=== PATIENT | female | born 1960 | race Caucasian/White ===

== ENCOUNTER → 2017-03-30 | Outpatient (CLI) | payer OTHER ==
[~2017-03-30] MED LIST: CALC500T83 PO; FLAX10007 PO; MULT-513 PO; REDCAP2 PO; [UNRECOGNIZED DRUG - CODE] OPB
--- NOTE | 2017-03-30 12:41 | MAMMOGRAPHY REPORT ---
BILATERAL DIGITAL SCREENING MAMMOGRAM TOMOSYNTHESIS WITH CAD: 03/30/2017 CLINICAL HISTORY: Routine screening. Patient has no complaints. TECHNIQUE: Breast tomosynthesis in addition to standard 2D mammography was performed. Current study was also evaluated with a Computer Aided Detection (CAD) system. COMPARISON: Comparison is made to exams dated: 03/21/2016 mammogram, 03/18/2015 mammogram, 02/17/2014 m ammogram, 02/13/2013 mammogram, 02/10/2012 mammogram, and 10/20/2010 mammogram - [facility] enter. BREAST COMPOSITION: There are scattered areas of fibroglandular density in both breasts. FINDINGS: No suspicious masses, calcifications, or areas of architectural distortion are noted in ei ther breast. There has been no significant interval change compared to prior exams. IMPRESSION: ACR BI-RADS CATEGORY 1: NEGATIVE There is no mammographic evidence of malignancy. A 1 year screening mammogram is recommended. The pa tient will receive written notification of the results. Approximately 10% of breast cancers are not detected with mammography. A negative mammographic report should not delay biopsy if a clinically suggestive mass is present. Faviola Rollins M.D. ah/:03/30/2017 07:47:56 Html Web Developer: Selena LOPEZ(Jl)(M), [facility] letter sent: Normal 1/2 BI-RADS Code: ACR BI-RADS Category 1: Negative
== END | disposition home or self-care (01) ==
LOC: C.MAMM 07:22
PROVIDERS: ATTEND Obstetrics & Gynecology
DX: Z12.31 Encounter for screening mammogram for malignant neoplasm of breast (principal)

== ENCOUNTER → 2017-06-09 | Outpatient (CLI) | payer OTHER ==
[2017-06-09 09:07] LABS: ALT/SGPT 30 U/L (12-78); BLOOD UREA NITROGEN 14 mg/dl (7-18); BUN/CREATININE RATIO 13.5 (10-20); CALCIUM 9.1 mg/dl (8.5-10.1); CARBON DIOXIDE 27 mmol/L (21-32); CHLORIDE 110 mmol/L (98-107); CREATININE 1.02 mg/dl (0.60-1.20); GLUCOSE 90 mg/dl (70-99); POTASSIUM 4.5 mmol/L (3.5-5.1); SODIUM 143 mmol/L (136-145)
[2017-06-09 09:17] LABS: ALKALINE PHOSPHATASE 84 U/L (45-117); AST/SGOT 21 U/L (15-37)
[2017-06-09 09:31] LABS: BASO % 0.9 %; BASO ABS # 0.06 K/uL (0-0.2); COMPLETE YES; EOS % 12.3 %; HEMATOCRIT 42.9 % (37-47); IG% 0.3 %; LYMPH % 31.8 %; LYMPH ABS # 2.13 K/uL (1.2-3.4); MEAN CELL VOLUME 89.2 fL (80-100); MEAN CORPUSCULAR HEMOGLOBIN 29.1 pg (25-34); MEAN CORPUSCULAR HGB CONC 32.6 g/dl (32-36); MEAN PLATELET VOLUME 9.6 fL (7.4-10.4); MONO % 7.5 %; NEUT % 47.2 %; PLATELET COUNT 316 K/uL (130-400); RED BLOOD COUNT 4.81 M/uL (4.2-5.4); WHITE BLOOD COUNT 6.69 K/uL (4.8-10.8)
[2017-06-09 09:47] LABS: ESTIMATED AVERAGE GLUCOSE 114 mg/dl; HA1C FLAG Normal (Normal)
== END | disposition home or self-care (01) ==
LOC: C.LAB 07:55
PROVIDERS: ATTEND Internal Medicine
DX: Z00.00 Encounter for general adult medical examination without abnormal findings (principal); R73.03 Prediabetes; I49.9 Cardiac arrhythmia, unspecified

== ENCOUNTER → 2017-06-09 | Outpatient (CLI) | payer OTHER ==
[2017-06-09 09:09] LABS: CHOLESTEROL/HDL RATIO 2.8
== END | disposition home or self-care (01) ==
LOC: C.LAB 07:52
PROVIDERS: ATTEND Internal Medicine
DX: Z13.220 Encounter for screening for lipoid disorders (principal)

== ENCOUNTER → 2017-08-07 | Outpatient (CLI) | payer OTHER | END | disposition home or self-care (01) | LOC: C.MAMM 07:56 | PROVIDERS: ATTEND Obstetrics & Gynecology | DX: Z78.0 Asymptomatic menopausal state (principal) ==

== ENCOUNTER 2024-10-15 08:11 | Observation (INO) ==
--- NOTE | 2024-10-15 08:38 | Emergency Department Note ---
Impression & Plan Dizziness, Chest pain ED Provider Note HISTORY OF PRESENT ILLNESS: Patient is a 64-year-old female presenting with strokelike symptoms and chest pain. Patient reports that she woke up this morning at 6:45 and had rolled over to turn off her alarm when she suddenly felt very dizzy. Reports that feels like the room is spinning. She states that she tried to look at her phone but had blurry and double vision. Reports that symptoms lasted for about 5 minutes and then she felt like her dizziness stopped and she was able to get up out of bed. She states she was slowly making her way to the bathroom to go to the bathroom when she started having numbness and tingling in her bilateral arms and legs. She also states she started having some substernal chest pressure that radiated up into her jaw. Given her symptoms, she decided to come to the emergency department. She is not on any medications daily, including any anticoagulation or antiplatelet therapies. She denies any recent falls or head injuries. Denies any chiropractic manipulation of her neck. She describes a diffuse chest pressure that radiates into her bilateral jaws. Denies any radiation to the back or into the abdomen. Denies any nausea or vomiting. She has never had vertigo before. ROS: as above PHYSICAL EXAM: Constitutional: Patient appears in no acute distress. HENT: Head: Normocephalic and atraumatic. Eyes: EOMI, PERRL Mouth/Throat: Mucous membranes moist. Neck: Trachea midline. Neck supple. Cardiovascular: RRR, No murmurs, rubs or gallops. Intact distal pulses. Pulmonary/Chest: No respiratory distress. Breath sounds clear and equal bilaterally. No wheezes or rales. Abdominal: Abdomen soft, no tenderness, rebound or guarding. Musculoskeletal: No edema, tenderness or deformity noted. Skin: Warm and dry. No rash, erythema, pallor or cyanosis Psychiatric: Appropriate mood and affect for situation. Neurological: Alert and keenly responsive. Facies symmetric. Able to raise eyebrows, close eyes, smile, puff mouth, stick out tongue, move tongue left and right and raise palate symmetrically. Able to shrug shoulders. PERRLA. SILT to forehead below eye and at jawline. Can hear soft noise bilaterally. Good finger to nose. Strength 5/5 in bilateral upper and lower extremities. SILT throughout bilateral upper and lower extremities. MDM: - Vitals signs showed hypertension. Fingerstick glucose 84. - History obtained via patient. History as above. - Chronic conditions affecting care: None - Differential diagnoses include, but are not limited to: CVA; intracranial hemorrhage; peripheral vertigo; ACS; pneumonia; electrolyte abnormality; dysrhythmia - Order placed for continuous cardiac monitoring. At this time, monitor showed rate of 75 bpm with normal sinus rhythm, per my interpretation. - External medical records reviewed. Primary care visit note dated 07/15/2024 was reviewed. Patient was seen for an acute visit for right sided rib pain for 1.5 weeks. - EKG image interpreted by myself showed normal sinus rhythm. Rate 80 bpm. QT 390. No acute ischemic changes. - Laboratory workup interpreted by myself showed normal WBC; normal PT/INR; stable electrolytes; normal troponin - CXR image reviewed by myself negative for pneumonia, per my interpretation - CT head wo contrast negative for acute abnormality - CTA head/neck negative for acute pathology - UA negative for infection - Given 324 mg PO aspirin - Repeat troponin within normal limits. - Patient was assisted up to the bathroom and still felt slightly lightheaded and dizzy and woozy. Discussed results with patient. Will be admitted for further strokelike workup including MRI and echocardiogram. - Discussion was had with case supervisor about patient's case and need for admission - Hospitalist, Dr. Melendez, consulted for admission - Patient admitted to [facility] for further evaluation and management. ASSESSMENT AND PLAN: Diagnosis: Dizziness; chest pain Plan: Admit Past Med/Surg History Problem List (Updated 10/15/24 @ 14:10 by Marianna Hair MD) Chest pain (Acute) Dizziness (Acute) Bunion, right foot Quadriceps tendinitis Patellofemoral arthralgia of right knee Foot pain, right Hyperglycemia Change in hearing Bunion Knee pain Venous insufficiency Vitamin D deficiency Atypical chest pain Family history of colonic polyps Postmenopausal atrophic vaginitis Osteopenia Hyperlipidemia Medical History Encounter for pre-operative examination Irregular heart rhythm Surgical History History of colonoscopy History of wisdom tooth extraction Family History Mother Family hx colonic polyps Sister Family hx colonic polyps Grandmother (Paternal) Breast cancer Grandfather (Maternal) Myocardial infarction Brother Throat cancer Other No family history of adverse response to anesthesia Denies family history of Colon cancer Ovarian cancer Prostate cancer Social History Smoking Status: Never smoker Second Hand Exposure: No; Do You Dip or Chew Tobacco: No; Hx Alcohol Use: Yes Alcohol type: wine Hx Substance Use: No Preferred Language: Bengali Communication Ability: Effective Visual Impairment: No Limitations Hearing Ability: Normal Heel Seat Sander Required: No Beliefs That Will Affect Care: None marital status: Current Living Situation: Spouse Feels Safe at Home: Yes Childhood Exposure to Second-Hand Smoke: No Seatbelt Use: always Sunscreen Use: Yes Assistive Devices: Contacts and Glasses Allergies Allergies Allergy/AdvReac Type Severity Reaction Status Date / Time rofecoxib Allergy Severe SWELLING Verified 08/12/24 14:08 IN ARMS AND LEGS cephalexin [From Keflex] Allergy Mild rash Verified 08/12/24 14:08 clarithromycin Allergy Mild RASH Verified 08/12/24 14:08 Home Meds Home Medications Medication Instructions Recorded Confirmed calcium carbonate (Calcium 500) 500 mg PO BID 02/20/19 10/15/24 flaxseed oil 1,000 mg capsule 1,000 mg PO QAM 02/20/19 10/15/24 multivitamin 1 tab PO QAM 02/20/19 10/15/24 red yeast rice 600 mg tablet 600 mg PO QAM 02/20/19 10/15/24 polyethylene glycol 400 0.25 % eye 1 drp ophthalmic (eye) DAILY 05/12/20 10/15/24 drops (Blink Tears) cholecalciferol (vitamin D3) 25 2,000 - 3,000 unit PO QAM 06/21/21 10/15/24 mcg (1,000 unit) tablet (Vitamin D3) Results & Data (ED) Vital Signs Vital Signs - 24 hr 10/15/24 08:15 10/15/24 09:15 10/15/24 09:38 Temperature 36.3 C L Temperature Source Temporal Artery Scan Pulse Rate 88 84 Pulse Rate [Right Finger] Pulse Rate from SpO2 Sensor Respiratory Rate 20 Respiratory Effort / Characteristics Respiratory Depth Blood Pressure 149/88 H Blood Pressure [Right Arm] Blood Pressure Mean 108 Blood Pressure Mean [Right Arm] Pulse Oximetry 100 99 Oxygen Delivery Method Room Air Room Air Sepsis Recent Fever Within 48 Hours No Sepsis New/Unexplained Change in Mental Status N/A Sepsis Action Taken by Nursing No Action Required 10/15/24 09:42 10/15/24 12:00 10/15/24 13:40 Temperature Temperature Source Pulse Rate 74 Pulse Rate [Right Finger] 78 82 Pulse Rate from SpO2 Sensor 75 Respiratory Rate 18 18 18 Respiratory Effort / Characteristics Non-Labored Spontaneous Respiratory Depth Normal Blood Pressure 146/88 H Blood Pressure [Right Arm] 115/76 155/85 H Blood Pressure Mean 107 Blood Pressure Mean [Right Arm] 89 108 Pulse Oximetry 100 99 98 Oxygen Delivery Method Room Air Room Air Sepsis Recent Fever Within 48 Hours Sepsis New/Unexplained Change in Mental Status Sepsis Action Taken by Nursing Laboratory Data 10/15/24 08:42 10/15/24 08:42 Lab Results 10/15/24 10/15/24 10/15/24 Range/Units 08:31 08:42 08:47 WBC 9.39 (4.8-10.8) K/ul RBC 4.74 (4.20-5.40) M/uL Hgb 13.7 (12.0-16.0) g/dl POC Hgb 13.9 (12.0-16.0) g/dl Hct 40.9 (37.0-47.0) % POC Hct 41 (37-47) % MCV 86.3 (80.0-100.0) fL MCH 28.9 (25.0-34.0) pg MCHC 33.5 (32.0-36.0) g/dL RDW Std Deviation 40.5 (36.4-46.3) fL RDW Coeff of Daisy 12.9 (11.5-14.5) % Plt Count 318 (130-400) K/uL MPV 9.8 (9.4-12.4) fL PT 10.4 (9.0-12.0) Seconds INR 1.0 (0.9-1.1) APTT 26 (21-31) Seconds PTT Ratio 1.0 POC Sodium 142 (135-144) mmol/L Sodium 140 (136-145) mmol/L POC Potassium 3.9 (3.3-5.0) mmol/L Potassium 3.9 (3.5-5.1) mmol/L POC Chloride 106 (101-112) mmol/L Chloride 107 (98-107) mmol/L Carbon Dioxide 26 (21-32) mmol/L POC Total CO2 21 L (24-31) mmol/L Anion Gap 7 (3-11) POC Anion Gap 19.0 (16-25) mmol/L POC BUN 12 (7-18) mg/dl BUN 13 (6-23) mg/dl Creatinine 0.93 (0.6-1.2) mg/dl POC Creatinine 1.0 (0.6-1.3) mg/dl Est Cr Clr Drug Dosing Not Reportable eGFR 67.79 BUN/Creatinine Ratio 14.0 (10-20) Glucose 103 H (70-99(Fasting)) mg/dl POC Glucose 84 (70-99) mg/dl POC Glucose (other) 100 H (70-99) mg/dl Calcium 9.5 (8.6-10.3) mg/dl POC Ioniz Calcium Donnell 1.14 (1.12-1.32) mmol/l Magnesium 2.2 (1.7-2.4) mg/dl Total Bilirubin 0.5 (0.2-1.0) mg/dl AST 23 (13-39) U/L ALT 20 (7-52) U/L Alkaline Phosphatase 65 (34-104) U/L Troponin I High Sens < 2.3 (0-14) pg/ml Total Protein 7.3 (6.0-8.3) gm/dl Albumin 4.4 (3.4-5.0) gm/dl Globulin 2.9 (2.5-4.0) gm/dl Albumin/Globulin Ratio 1.5 (0.9-2) Urine Color Urine Appearance (Clear) Urine pH (4.5-7.5) Ur Specific [place] (1.000-1.030) Urine Protein (Negative) Urine Glucose (UA) (Negative) Urine Ketones (Negative) Urine Blood (Negative) Urine Nitrite (Negative) Urine Bilirubin (Negative) Urine Urobilinogen (Negative) Ur Leukocyte Esterase (Negative) Urine WBC (Auto) (0-5) /hpf Urine RBC (Auto) (0-2) /hpf U Hyaline Cast (Auto) (0-2) /lpf U Epithel Cells (Auto) (0-2) /hpf Urine Bacteria (Auto) (None Seen) 10/15/24 10/15/24 Range/Units 09:42 12:05 WBC (4.8-10.8) K/ul RBC (4.20-5.40) M/uL Hgb (12.0-16.0) g/dl POC Hgb (12.0-16.0) g/dl Hct (37.0-47.0) % POC Hct (37-47) % MCV (80.0-100.0) fL MCH (25.0-34.0) pg MCHC (32.0-36.0) g/dL RDW Std Deviation (36.4-46.3) fL RDW Coeff of Daisy (11.5-14.5) % Plt Count (130-400) K/uL MPV (9.4-12.4) fL PT (9.0-12.0) Seconds INR (0.9-1.1) APTT (21-31) Seconds PTT Ratio POC Sodium (135-144) mmol/L Sodium (136-145) mmol/L POC Potassium (3.3-5.0) mmol/L Potassium (3.5-5.1) mmol/L POC Chloride (101-112) mmol/L Chloride (98-107) mmol/L Carbon Dioxide (21-32) mmol/L POC Total CO2 (24-31) mmol/L Anion Gap (3-11) POC Anion Gap (16-25) mmol/L POC BUN (7-18) mg/dl BUN (6-23) mg/dl Creatinine (0.6-1.2) mg/dl POC Creatinine (0.6-1.3) mg/dl Est Cr Clr Drug Dosing eGFR BUN/Creatinine Ratio (10-20) Glucose (70-99(Fasting)) mg/dl POC Glucose (70-99) mg/dl POC Glucose (other) (70-99) mg/dl Calcium (8.6-10.3) mg/dl POC Ioniz Calcium Donnell (1.12-1.32) mmol/l Magnesium (1.7-2.4) mg/dl Total Bilirubin (0.2-1.0) mg/dl AST (13-39) U/L ALT (7-52) U/L Alkaline Phosphatase (34-104) U/L Troponin I High Sens < 2.3 (0-14) pg/ml Total Protein (6.0-8.3) gm/dl Albumin (3.4-5.0) gm/dl Globulin (2.5-4.0) gm/dl Albumin/Globulin Ratio (0.9-2) Urine Color Yellow Urine Appearance Cloudy A (Clear) Urine pH 8.5 H (4.5-7.5) Ur Specific [place] 1.018 (1.000-1.030) Urine Protein Negative (Negative) Urine Glucose (UA) Negative (Negative) Urine Ketones Negative (Negative) Urine Blood Negative (Negative) Urine Nitrite Negative (Negative) Urine Bilirubin Negative (Negative) Urine Urobilinogen Negative (Negative) Ur Leukocyte Esterase Negative (Negative) Urine WBC (Auto) 0-5 (0-5) /hpf Urine RBC (Auto) 0-2 (0-2) /hpf U Hyaline Cast (Auto) 0-2 (0-2) /lpf U Epithel Cells (Auto) 0-2 (0-2) /hpf Urine Bacteria (Auto) None Seen (None Seen) Administered Medications Discontinued Medications Ioversol (Optiray 320 125ml) 112 ml IV ONCE ONE Stop: 10/15/24 09:01 Last Admin: 10/15/24 09:00 Dose: 112 ml Documented By: MANDI Meclizine HCl (Meclizine Hcl 25 Mg Tab) 25 mg PO NOW STA Stop: 10/15/24 10:06 Last Admin: 10/15/24 10:19 Dose: 25 mg Documented By: MR Imaging Data Radiologist's Impression: Chest X-Ray 10/15/24 08:24 XR chest 1V portable CLINICAL HISTORY: stroke alert COMPARISON STUDY: 07/15/2024 FINDINGS: Heart size and pulmonary vasculature are normal. No effusion, consolidation, or pneumothorax. IMPRESSION: No acute findings. ACT 112: Negative or not required by law. Electronically signed by: Jose Gaytan M.D. 10/15/2024 8:[address] 10/15/24 08:24 CT OF THE HEAD WITHOUT CONTRAST CLINICAL HISTORY: Neuro deficit, acute, stroke suspected. COMPARISON STUDY: No previous studies for comparison. TECHNIQUE: Helical axial images of the head were obtained without IV contrast. Automated exposure control was utilized for the study. A dose lowering technique was utilized adhering to the principles of ALARA. FINDINGS: No acute intracranial hemorrhage, midline shift or mass effect is present. Mild white matter hypodensity suggests small vessel disease. The ventricular system is unremarkable. The basal cisterns are patent. No extra- axial collections are present. There are no findings to suggest acute dural sinus thrombosis or acute territorial infarct. No significant calvarial abnormalities are present. IMPRESSION: No acute intracranial findings. ACT 112: Negative or not required by law. Electronically signed by: Scottie Smith M.D. 10/15/2024 9:19 AM Head CTA 10/15/24 08:24 CT angio neck with con, CT angio head w con CLINICAL HISTORY: paresthesias; weakness. COMPARISON STUDY: None TECHNIQUE: Following the IV administration of 112 of Optiray, CT angiogram of the neck and brain was performed from the aortic arch to the skull base. Images are reviewed in the axial, sagittal, and coronal planes. 3-D MIPS images are created and assessed. IV contrast was administered without complication. All measurements were calculated based on NASCET criteria. A dose lowering technique was utilized adhering to the principles of ALARA. CT DOSE: 1214.89 mGy.cm FINDINGS: Left vertebral artery originates from the aortic arch, anatomic variant. Right vertebral artery is dominant and the left vertebral artery is diminutive beyond PICA, anatomic variant. Common and internal carotid and vertebral arteries show no significant narrowing or occlusion bilaterally. Basilar artery is diminutive but patent and there is predominantly origin of the right VALVER, anatomic variant. The anterior, middle, and posterior cerebral arteries are patent bilaterally. No intracranial aneurysm seen. Cerebral venous sinuses opacify normally. IMPRESSION: No significant arterial narrowing or occlusion seen at the neck or brain. ACT 112: Negative or not required by law. The above report was generated using voice recognition software. It may contain grammatical, syntax or spelling errors. Electronically signed by: Jose Gaytan M.D. 10/15/2024 9:25 AM Neck CTA 10/15/24 08:24 CT angio neck with con, CT angio head w con CLINICAL HISTORY: paresthesias; weakness. COMPARISON STUDY: None TECHNIQUE: Following the IV administration of 112 of Optiray, CT angiogram of the neck and brain was performed from the aortic arch to the skull base. Images are reviewed in the axial, sagittal, and coronal planes. 3-D MIPS images are created and assessed. IV contrast was administered without complication. All measurements were calculated based on NASCET criteria. A dose lowering technique was utilized adhering to the principles of ALARA. CT DOSE: 1214.89 mGy.cm FINDINGS: Left vertebral artery originates from the aortic arch, anatomic variant. Right vertebral artery is dominant and the left vertebral artery is diminutive beyond PICA, anatomic variant. Common and internal carotid and vertebral arteries show no significant narrowing or occlusion bilaterally. Basilar artery is diminutive but patent and there is predominantly origin of the right VALVER, anatomic variant. The anterior, middle, and posterior cerebral arteries are patent bilaterally. No intracranial aneurysm seen. Cerebral venous sinuses opacify normally. IMPRESSION: No significant arterial narrowing or occlusion seen at the neck or brain. ACT 112: Negative or not required by law. The above report was generated using voice recognition software. It may contain grammatical, syntax or spelling errors. Electronically signed by: Jose Gaytan M.D. 10/15/2024 9:25 AM Discharge Plan Visit Data Chief Complaint: TIA Symptoms Stated Complaint: ROOM SPIN, DOUBLE VISION,WEAK, JAW P, TINGLING ARM ED Provider: Marianna Hair Discharge Problem: Dizziness, Chest pain Forms [facility] Prescriptions Prescriptions: No Action multivitamin Tablet 1 tab PO QAM flaxseed oil 1,000 mg Capsule 1,000 mg PO QAM calcium carbonate [Calcium 500] 500 mg calcium (1,250 mg) Tablet 500 mg PO BID red yeast rice 600 mg Tablet 600 mg PO QAM Blink Tears 0.25 % Drops 1 drp OPHTHALMIC (EYE) DAILY cholecalciferol (vitamin D3) [Vitamin D3] 25 mcg (1,000 unit) tablet 2,000 - 3,000 unit PO QAM Patient Comments: alternating 1000U and 2000U every other day Referrals Referrals: Pro,Herminio Colby MD [Primary Care Provider] -
--- NOTE | 2024-10-15 08:39 | XRay Report ---
XR chest 1V portable CLINICAL HISTORY: stroke alert COMPARISON STUDY: 07/15/2024 FINDINGS: Heart size and pulmonary vasculature are normal. No effusion, consolidation, or pneumothora x. IMPRESSION: No acute findings. ACT 112: Negative or not required by law. Electronically signed by: Jose Gaytan M.D. 10/15/2024 8:38 AM
[2024-10-15 08:59] LABS: iSTAT Hemoglobin 13.9 g/dl (12.0-16.0); iSTAT Ionized Calcium 1.14 mmol/l (1.12-1.32); iSTAT Potassium 3.9 mmol/L (3.3-5.0)
[2024-10-15] MEDS: OPTIRAY 320 125ml IV ONE (09:00)
[2024-10-15 09:08] LABS: Hematocrit (blood only) 40.9 % (37.0-47.0); Hemoglobin 13.7 g/dl (12.0-16.0); Mean Corpuscular Hemoglobin 28.9 pg (25.0-34.0); Mean Corpuscular Hgb Conc 33.5 g/dL (32.0-36.0); Mean Corpuscular Volume 86.3 fL (80.0-100.0); Mean Platelet Volume 9.8 fL (9.4-12.4); Platelet Count 318 K/uL (130-400); RDW Coefficient of Variation 12.9 % (11.5-14.5); RDW Standard Deviation 40.5 fL (36.4-46.3); Red Blood Count 4.74 M/uL (4.20-5.40); White Blood Count 9.39 K/ul (4.8-10.8)
[2024-10-15 09:12] LABS: Alanine Aminotransferase 20 U/L (7-52); Albumin Globulin Ratio 1.5 (0.9-2); Albumin Level 4.4 gm/dl (3.4-5.0); Alkaline Phosphatase 65 U/L (34-104); Anion Gap 7 (3-11); Aspartate Aminotransferase 23 U/L (13-39); Bilirubin,Total 0.5 mg/dl (0.2-1.0); Blood Urea Nitrogen 13 mg/dl (6-23); Calcium 9.5 mg/dl (8.6-10.3); Carbon Dioxide 26 mmol/L (21-32); Chloride 107 mmol/L (98-107); Globulin 2.9 gm/dl (2.5-4.0); Glucose 103 mg/dl (70-99(Fasting)); Magnesium 2.2 mg/dl (1.7-2.4); Potassium 3.9 mmol/L (3.5-5.1); Sodium 140 mmol/L (136-145); Total Protein 7.3 gm/dl (6.0-8.3)
[2024-10-15 09:17] LABS: Troponin I High Sensitivity < 2.3 pg/ml (0-14)
--- NOTE | 2024-10-15 09:20 | CT Scan Report ---
CT OF THE HEAD WITHOUT CONTRAST CLINICAL HISTORY: Neuro deficit, acute, stroke suspected. COMPARISON STUDY: No previous studies for comparison. TECHNIQUE: Helical axial images of the head were obtained without IV contrast. Automated exposure con trol was utilized for the study. A dose lowering technique was utilized adhering to the principles o f ALARA. FINDINGS: No acute intracranial hemorrhage, midline shift or mass effect is present. Mild white matte r hypodensity suggests small vessel disease. The ventricular system is unremarkable. The basal cister ns are patent. No extra-axial collections are present. There are no findings to suggest acute dural s inus thrombosis or acute territorial infarct. No significant calvarial abnormalities are present. IMPRESSION: No acute intracranial findings. ACT 112: Negative or not required by law. Electronically signed by: Scottie Smith M.D. 10/15/2024 9:19 AM
--- NOTE | 2024-10-15 09:26 | CT Scan Report ---
CT angio neck with con, CT angio head w con CLINICAL HISTORY: paresthesias; weakness. COMPARISON STUDY: None TECHNIQUE: Following the IV administration of 112 of Optiray, CT angiogram of the neck and brain was performed from the aortic arch to the skull base. Images are reviewed in the axial, sagittal, and cor onal planes. 3-D MIPS images are created and assessed. IV contrast was administered without complicat ion. All measurements were calculated based on NASCET criteria. A dose lowering technique was utiliz ed adhering to the principles of ALARA. CT DOSE: 1214.89 mGy.cm FINDINGS: Left vertebral artery originates from the aortic arch, anatomic variant. Right vertebral ar christophe is dominant and the left vertebral artery is diminutive beyond PICA, anatomic variant. Common an d internal carotid and vertebral arteries show no significant narrowing or occlusion bilaterally. Bas ilar artery is diminutive but patent and there is predominantly origin of the right [place]ER, anatom ic variant. The anterior, middle, and posterior cerebral arteries are patent bilaterally. No intracra nial aneurysm seen. Cerebral venous sinuses opacify normally. IMPRESSION: No significant arterial narrowing or occlusion seen at the neck or brain. ACT 112: Negative or not required by law. The above report was generated using voice recognition software. It may contain grammatical, syntax o r spelling errors. Electronically signed by: Jose Gaytan M.D. 10/15/2024 9:25 AM
[2024-10-15 09:40] LABS: Partial Thromboplastin Time 26 Seconds (21-31); Prothrombin Time 10.4 Seconds (9.0-12.0)
[2024-10-15 10:08] LABS: Appearance Urine Cloudy (Clear); Bacteria Urine Automated None Seen (None Seen); Bilirubin Urine Negative (Negative); Blood Urine Negative (Negative); Cast Urine Automated 0-2 /lpf (0-2); Color Urine Yellow; Epithelial Cell Urine Auto 0-2 /hpf (0-2); Glucose Urine UA Negative (Negative); Ketones Urine Negative (Negative); Leukocyte Esterase Urine Negative (Negative); Nitrite Urine Negative (Negative); Protein Urine Negative (Negative); RBC Urine Automated 0-2 /hpf (0-2); Specific Gravity Urine 1.018 (1.000-1.030); Urobilinogen Urine Negative (Negative); WBC Urine Automated 0-5 /hpf (0-5); pH Urine 8.5 (4.5-7.5)
[2024-10-15] MEDS: MECLIZINE HCL 25 MG TAB PO STA (10:19)
--- NOTE | 2024-10-15 14:03 | History & Physical Report ---
Date of Service October 15, 2024 Assessment & Plan (1) Dizziness: (2) Chest heaviness: (3) Prediabetes: Plan Lizbeth is a 64-year-old female with a past medical history of hyperlipidemia and prediabetes who presents with acute onset dizziness with a sensation that the room was spinning. Concern for stroke in the ER had head CT, head and neck CTA that were unrevealing. Admitted to the hospital service for further TIA workup and control of her dizziness #dizziness - TIA versus vertigo Symptoms seem to be more consistent with vertigo, however will complete stroke workup. Given meclizine in the ER with improvement. Will continue meclizine 12.5mg scheduled TID, with additional 12.5mg TID PRN Brain MRI pending Aspirin loaded in the ER, continue aspirin 81mg daily Echo pending. EKG in the ER showed sinus rhythm AM lipids, hemoglobin A1c, TSH PT/OT #chest heaviness EKG without ST abnormalities. Troponin negative x 2 Given recent prolonged travel will check D-dimer #Prediabetes Controlled with diet and exercise, last A1c 5.5 10/2023 Glucose controlled on arrival, AM A1c as above #Hyperlipidemia Controlled with diet and red yeast rice outpatient Defer statin on admission as vertigo seems more likely dx, reeval pending AM lipid panel Dispo: Obs to med/tele DVT proh: Coagulated History of Present Illness Primary Care Provider: Herminio Gomez MD Lizbeth is a 64-year-old female with a past medical history of hyperlipidemia and prediabetes who presents with acute onset dizziness with a sensation that the room was spinning. patient seen sitting up in ER bed, present at bedside. States when she rolled over this morning she had significant dizziness and could not even open her eyes. Thought that she was going to vomit but she did not. After receiving the meclizine in the ER that sensation has subsided but still comes and goes. States earlier when people were talking to her she was not even able to open her eyes because she was so dizzy. Since then she has been able to ambulate to the bathroom 3-4 times, she does so independently states that she is holding onto furniture and that it is getting better each time. Still with a chest heaviness sensation, she denies chest pain or shortness of breath. Did recently drive back from [place] about 10 days ago, did break the trip up into multiple segments with the longest segment being approximately 6 hours. No unilateral leg swelling or pain. She does not smoke Agreeable to admission for further stroke workup and control of vertigo symptoms Patient wishes to be a full code. She does not take any prescribed medications ED course: meclizine 25 mg p.o. x 1 Aspirin 324 mg p.o. Allergies Allergy/AdvReac Type Severity Reaction Status Date / Time rofecoxib Allergy Severe SWELLING Verified 08/12/24 14:08 IN ARMS AND LEGS cephalexin [From Keflex] Allergy Mild rash Verified 08/12/24 14:08 clarithromycin Allergy Mild RASH Verified 08/12/24 14:08 Home Medications Medication Instructions Recorded Confirmed Type calcium carbonate (Calcium 500) 500 mg PO BID 02/20/19 10/15/24 History flaxseed oil 1,000 mg capsule 1,000 mg PO QAM 02/20/19 10/15/24 History multivitamin 1 tab PO QAM 02/20/19 10/15/24 History red yeast rice 600 mg tablet 600 mg PO QAM 02/20/19 10/15/24 History polyethylene glycol 400 0.25 % eye 1 drp ophthalmic (eye) DAILY 05/12/20 10/15/24 History drops (Blink Tears) cholecalciferol (vitamin D3) 25 2,000 - 3,000 unit PO QAM 06/21/21 10/15/24 History mcg (1,000 unit) tablet (Vitamin D3) Past Med/Surg History Problem List (Updated 10/15/24 @ 14:44 by Ira Prater PA-C) Prediabetes Chest heaviness Chest pain (Acute) Dizziness (Acute) Bunion, right foot Quadriceps tendinitis Patellofemoral arthralgia of right knee Foot pain, right Hyperglycemia Change in hearing Bunion Knee pain Venous insufficiency Vitamin D deficiency Atypical chest pain Family history of colonic polyps Postmenopausal atrophic vaginitis Osteopenia Hyperlipidemia Medical History Encounter for pre-operative examination Irregular heart rhythm Surgical History History of colonoscopy History of wisdom tooth extraction Family History Mother Family hx colonic polyps Sister Family hx colonic polyps Grandmother (Paternal) Breast cancer Grandfather (Maternal) Myocardial infarction Brother Throat cancer Other No family history of adverse response to anesthesia Denies family history of Colon cancer Ovarian cancer Prostate cancer Social History Smoking Status: Never smoker Second Hand Exposure: No; Do You Dip or Chew Tobacco: No; Tobacco Cessation Education Requested by Patient: No Hx Alcohol Use: Yes Alcohol type: wine Hx Substance Use: No Preferred Language: Turkmen Communication Ability: Effective Visual Impairment: No Limitations Hearing Ability: Normal Show Design Supervisor Required: No Beliefs That Will Affect Care: None marital status: Current Living Situation: Spouse Other Information That Helps Us Care for You: No Feels Safe at Home: Yes Safety Concerns: Feels Safe At This Time Childhood Exposure to Second-Hand Smoke: No Seatbelt Use: always Sunscreen Use: Yes Assistive Devices: None Review of Systems Review of Systems: All systems reviewed & are unremarkable except as noted in Subjective Physical Exam Physical Exam: General: NAD, VS as above HEENT: MMM, EOMI, no nystagmus Resp: normal respiratory effort, lungs clear to auscultation CV: RRR, no murmur, Abd: normal bowel sounds, non tender, no hepatosplenomegaly Extremities: Moves all extremities, no edema, negative kathryn sign bilaterally Neuro: A&O x3, no focal deficits Skin: intact, no lesions noted Results & Data Results & Data Vital Signs (Past 12 Hours) Vital Signs Temp Pulse Pulse Resp BP BP Pulse Ox 10/15/24 13:40 82 18 155/85 H 98 10/15/24 12:00 78 18 115/76 99 10/15/24 09:42 74 18 146/88 H 100 10/15/24 09:38 84 10/15/24 09:15 99 10/15/24 08:15 97.3 F L 88 20 149/88 H 100 O2 Del Method 10/15/24 13:40 Room Air 10/15/24 12:00 Room Air 10/15/24 09:42 10/15/24 09:38 10/15/24 09:15 Room Air 10/15/24 08:15 Room Air Laboratory Results CBC, chemistry reviewed INR reviewed UA reviewed LFTs reviewed Troponin reviewed Supervising Physician Co-Signing Physician Notes Patient seen and examined, chart reviewed, case discussed with Ira Prater PA-C and I agree with the assessment and plan as above except as otherwise noted Labs and images reviewed Six 4-year-old female with history of hyperlipidemia, prediabetes who presented with acute vertigo/dizziness and a feeling of lightheadedness. Does have some nausea. Elizabeth-Hallpike was not positive. Severe symptoms and had difficulty holding onto furniture. She feel little lightheaded. She does have a feeling of heaviness in her chest, no chest pain or shortness of breath but some heaviness with deep breathing. Recently drove back from [place] 10 days ago. No leg swelling, no calf pain. Initially was evaluated for stroke, CTAhead and neck and MRI do not show evidence of stroke pathology. Due to her long car ride D-dimer was obtained. This is positive. Additional does continue to endore heaviness feeling on deep inspiration at evening reassessment, although no tachycardia/hypoxia Potential for PE in the setting of dizziness with long car ride. Patient has already received an angiography load for her head/neck CTA today. Risk of contrast-induced kidney injury with second angiography load is higher than risk of bleeding from empiric heparinization especially given that MRI is normal. Discussed risks/benefits of heparinization vs deferring until tomorrow for CTA. On shared decisionmakin agree w/ heparin tonight. Heparin GTT ordered overnight. Recommend CTAPE after 24 hours and Dopplers. If no DVT or PE RC and then discontinue heparin. If VTE is observed then complete workup with bubble study. Discussed with patient at bedside Agree with assessment and management as noted above PG Care Time/CCT Total # of Minutes Spent Total Time Spent with Patient: Total time spent is greater than 50% in coordination of care (as documented) at patient's floor/unit and/or counseling patient: Coding Level of Care Code 36375 INT INP/OBS CARE MIN Diagnoses Dizziness R42 Chest heaviness R07.89 Prediabetes R73.03
[2024-10-15] MEDS: ASPIRIN CHEW 324 MG PO STA (14:26)
[2024-10-15] MEDS ORDERED: MECLIZINE 12.5 MG TAB PO PRN (14:29)
--- NOTE | 2024-10-15 14:54 | Electrocardiogram Report ---
Test Reason : Blood Pressure : */* mmHG Vent. Rate : 80 BPM Atrial Rate : 80 BPM P-R Int : 148 ms QRS Dur : 78 ms QT Int : 390 ms P-R-T Axes : 65 34 69 degrees QTcB Int : 449 ms Normal sinus rhythm Normal ECG No previous ECGs available Confirmed by Wilmar La ([id number]) on 10/15/2024 2:54:26 PM Referred By: REFERRED SELF Confirmed By: Wilmar La
[2024-10-15 15:50] LABS: D Dimer 720 ug/L FEU (0-500)
[2024-10-15] MEDS ORDERED: PHARMACIST DISCHARGE MED REC CONSULT PRN (16:14)
[2024-10-15] MEDS ORDERED: POLYETHYLENE (MIRALAX) 17 GM PACK PO PRN (16:14)
[2024-10-15] MEDS ORDERED: ACETAMINOPHEN 500 MG TAB PO PRN (16:14)
--- NOTE | 2024-10-15 18:56 | Magnetic Resonance Report ---
EXAM: MR brain wo con CLINICAL HISTORY: r/o stroke, positive d-dimer TECHNIQUE: Different pulse sequences were performed in different planes for the brain without GD-DTPA injection. Images were sent through PACs for interpretation. COMPARISON: None. FINDINGS: No hyperacute or acute infarctions could be detected. Altered deep white matter signals are seen at the forceps minor, forceps major, periventricular, and centrum semiovale regions. These exhibit bright signals on T2 and FLAIR WI and intermediate signals on T1 WI. Findings suggest consequences of small vessel disease, e.g., hypertensive and/or diabetic vasculopathy. Mild widening of the frontoparietal sulci and sylvian fissures consistent with a normal aging brain. Cavum velum interpositum (Normal variant). A Prominent perivascular meningeal covering around release and technical records clerk branches of the centrum semiovale region (Virchow-George spaces). Incidentally noted a small retrocerebellar arachnoid cyst. Normal MRI appearance of the cerebellar parenchymal signals. Normal MRI appearance of the deep white matter and central vee matter aggregates. Normal size and configuration of the cerebral ventricles. Normal MRI appearance of different anatomical parts of the brain stem, namely the midbrain, shreya, and medulla oblongata. Normal MRI appearance of the petrous temporal bones, brainstem, vestibule cochlear nerves, and cerebellopontine angles with no definite masses. No shift of midline structures. No intracerebral or extra-axial hematomas or masses. Normal MRI appearance of orbital structures, both globes, optic nerves, optic chiasm, optic tracts and radiations. The scanned paranasal sinuses are unremarkable. IMPRESSION: 1. No hyperacute or acute infarctions. 2. No intracerebral or extra axial hematoma. 3. Imaging features consistent with the consequences of small vessel disease, e.g., hypertensive and/or diabetic vasculopathy.(Fazekas grade 1). 4. Normal aging brain. 5. A Prominent perivascular meningeal covering around release and technical records clerk branches of the centrum semiovale region (Virchow-George spaces). 6. Incidentally noted a small retro cerebellar arachnoid cyst. Electronically signed by Terrence Quiroga 10-15-2024 6:56 PM
[2024-10-15] MEDS: MECLIZINE 12.5 MG TAB PO SCH (20:14)
[2024-10-15] MEDS: HEPARIN SOD (PORCINE) 1000 UNIT/ML IV ONE (21:44)
[2024-10-15] MEDS: HEPARIN 25000 UNIT/500 ML D5W 25,000 UNITS/500 ML BAG IV SCH (21:49)
[2024-10-15] MEDS: Heparin IV Adult Wt-Based Standard w/ INITIAL Bolus Protocol IV STA (21:50)
--- NOTE | 2024-10-16 00:13 | Ultrasound Report ---
Exam(s): US VENOUS BILATERAL LOWER EXTREMITIES EXAM: US Duplex Bilateral Lower Extremities Veins CLINICAL HISTORY: DVT r/o. TECHNIQUE: Real-time duplex ultrasound scan of the bilateral lower extremity veins integrating B-mode two-dimensional vascular structure, Doppler spectral analysis, color flow Doppler imaging and compression. COMPARISON: No relevant prior studies available. FINDINGS: Right deep veins: No DVT in the right common femoral, femoral, proximal deep femoral or popliteal veins. The veins demonstrate normal color flow, are normally compressible, with normal phasic flow and/or augmentation response. The interrogated calf veins are patent. Right superficial veins: No thrombus in the saphenofemoral junction. Left deep veins: No DVT in the left common femoral, femoral, proximal deep femoral or popliteal veins. The veins demonstrate normal color flow, are normally compressible, with normal phasic flow and/or augmentation response. The interrogated calf veins are patent. Left superficial veins: No thrombus in the saphenofemoral junction. Soft tissues: No acute findings. No popliteal cyst. IMPRESSION: No evidence for deep vein thrombosis involving the bilateral lower extremities. Electronically signed by: Jarod Ewing MD 10/16/24 00:12 AM
[2024-10-16 04:50] LABS: Chol HDL Ratio 3.1 (0-5)
[2024-10-16 05:14] LABS: ANTI-Xa, UFH(UnfractionatedHep 1.39 IU/ml (0.3-0.7)
[2024-10-16] MEDS: MULTIVITAMIN TAB PO SCH (07:29)
[2024-10-16] MEDS: ASPIRIN 81 MG ECTAB PO SCH (07:29)
[2024-10-16] MEDS: SODIUM CHLORIDE 0.9% 500 ML IV ONE (09:25)
[2024-10-16] MEDS: SODIUM CHLORIDE 0.9% 500 ML IV SCH (10:12)
[2024-10-16] MEDS: OPTIRAY 320 125ml IV ONE (10:58)
--- NOTE | 2024-10-16 11:15 | CT Scan Report ---
CT angio chest PE protocol CT DOSE: 617.01 mGy.cm HISTORY: PE. TECHNIQUE: Multiple CTA images of the chest were obtained after the intravenous administration of 75 ml Optiray. Coronal and sagittal MIPS were obtained from the axial data set and were submitted for r eview. All measurements were obtained according to NASCET criteria. A dose lowering technique was ut ilized adhering to the principles of ALARA. COMPARISON STUDY: Chest x-ray yesterday FINDINGS: There is no pulmonary consolidation, pleural effusion, or pneumothorax. No enlarged adenopa thy. No pericardial effusion. No thoracic aortic dissection or aneurysm. No pulmonary embolism. There are multiple small cysts in the visualized upper liver. There are tiny splenic calcifications consis tent with prior granulomatous disease. No acute osseous findings. IMPRESSION: No pulmonary embolism or pneumonia. ACT 112: Negative or not required by law. The above report was generated using voice recognition software. It may contain grammatical, syntax o r spelling errors. Electronically signed by: Jose Gaytan M.D. 10/16/2024 11:13 AM
[2024-10-16 13:40] LABS: Estimated Average Glucose 114 mg/dl; Hemoglobin A1C 5.6 % (4.5-5.6)
--- NOTE | 2024-10-16 15:28 | Discharge Summary ---
Discharge Summary Date of Service October 16, 2024 Principal Dx & Hospital Course #1 = Principal Diagnosis (1) Hyperglycemia: (2) Hyperlipidemia: (3) Dizziness: (4) Intracranial arachnoid cyst: Plan Patient was admitted to the hospital service for evaluation of dizziness She had CTA head and neck which was unremarkable, CT of the head which was unremarkable and an MRI of the brain which did not show any evidence of acute infarct but showed small vessel disease and an incidental finding of small retrocerebellar arachnoid cyst She had a 2D echo done which showed an EF of 60% with mild mitral regurgitation and trace tricuspid regurgitation Patient had to wait 24 hours to get a CT scan of her chest to rule out PE since D-dimer was elevated CT chest showed no evidence of PE and no evidence of infiltrates Bilateral lower extreme Dopplers were negative for DVT Patient was seen by physical therapy and her dizziness had resolved Patient is A1c is 5.6 Triglycerides are 66 HDL is 60 Cholesterol is 184 LDL is 111 Patient is on red rice extract for hyperlipidemia Have asked her to follow-up with her PCP for hyperlipidemia Patient is herself a retired physical therapist Her is at bedside She is ambulating without any issues and she has had no more dizziness since overnight She is tolerating oral diet without any nausea vomiting diarrhea abdominal pain She has no feeling of chest heaviness. Troponins were all negative and there were no EKG ischemic changes Telemetry did not show any evidence of arrhythmias Patient has been seen and examined today. She is hemodynamically stable for discharge home. I am hydrating her with IV fluids after CT chest with IV contrast since this is her second CAT scan in 24 hours with IV contrast. I have advised her to hydrate herself for the next 48 hours and follow-up with PCP to have her renal function monitored I have gone over the discharge care plan, medications and follow-up with the patient and her at the bedside in great detail and answered all her qu estions. This discharge took greater than 30 minutes to coordinate Admission HPI Per Admitting Provider Lizbeth is a 64-year-old female with a past medical history of hyperlipidemia and prediabetes who presents with acute onset dizziness with a sensation that the room was spinning. patient seen sitting up in ER bed, present at bedside. States when she rolled over this morning she had significant dizziness and could not even open her eyes. Thought that she was going to vomit but she did not. After receiving the meclizine in the ER that sensation has subsided but still comes and goes. States earlier when people were talking to her she was not even able to open her eyes because she was so dizzy. Since then she has been able to ambulate to the bathroom 3-4 times, she does so independently states that she is holding onto furniture and that it is getting better each time. Still with a chest heaviness sensation, she denies chest pain or shortness of breath. Did recently drive back from [place] about 10 days ago, did break the trip up into multiple segments with the longest segment being approximately 6 hours. No unilateral leg swelling or pain. She does not smoke Agreeable to admission for further stroke workup and control of vertigo symptoms Patient wishes to be a full code. She does not take any prescribed medications ED course: meclizine 25 mg p.o. x 1 Aspirin 324 mg p.o. Discharge Exam General: No acute distress Psych: Awake and alert HEENT: Anicteric sclera, moist oral mucosa CVS: Regular rate and rhythm Lungs: Bilateral air entry, no wheezing noted Abdomen: Soft, nontender, no rebound, no guarding Ext: No lower extremity edema, no calf tenderness Neuro: No focal motor deficits noted Discharge Plan Discharge Items Patient Disposition: Home - Self-Care Reason For Visit: DIZZINESS, STROKE R/O Discharge Diagnosis: Suspected benign positional vertigo Hyperlipidemia Condition on Discharge: Good Activity: Resume your previous activity Non-emergency contact: Primary Care Provider Call non-emergency contact if: you have any medication questions, your symptoms worsen and you have a fever Follow-up/Referrals: Herminio Gomez MD [Primary Care Provider] - Diet: Heart Healthy Addtl Attending Provider Instructions: DISCHARGE INSTRUCTION TO PATIENT/FAMILY: You presented with dizziness. You had an MRI of your brain which did not show any evidence of stroke. It did show some small vessel disease and a small retrocerebellar arachnoid cyst which appears to be an incidental finding. You had bilateral lower extremity Dopplers which did not show any evidence of deep vein thrombosis. He also had a CAT scan of the chest with contrast which did not show any evidence of blood clots in your lungs i.e. pulmonary embolism. I have prescribed you meclizine 12.5 mg 3 times a day as needed for dizziness. If your dizziness recurs please see your PCP for referral to outpatient physical therapy for vestibular physical therapy. Follow-up with your primary care provider within 1 week regarding: Posthospital discharge, medication review, medication refills and follow-up on all your medical problems Please take all your discharge medications, discharge information and discharge instructions to all your doctors appointments. Avoid all NSAIDs including ibuprofen, Motrin, Advil, Aleve, naproxen, meloxicam, Toradol, diclofenac since you have had IV contrast for CAT scan studies 2 days in a row. Please ensure that you are hydrating yourself with at least 2 to 3 L of water every day for the next 48 hours Labs through PCP in 1 to 2 weeks: BMP, MG, VITAMIN D Pending Studies at Discharge: No Stand-Alone Forms: My [facility], Smoking Cessation Medications and DC Order Prescriptions: New meclizine 12.5 mg Tablet 12.5 mg PO TID PRN (Reason: dizziness) Qty: 15 0RF Continued multivitamin Tablet 1 tab PO QAM flaxseed oil 1,000 mg Capsule 1,000 mg PO QAM calcium carbonate [Calcium 500] 500 mg calcium (1,250 mg) Tablet 500 mg PO BID red yeast rice 600 mg Tablet 600 mg PO QAM Blink Tears 0.25 % Drops 1 drp OPHTHALMIC (EYE) DAILY cholecalciferol (vitamin D3) [Vitamin D3] 25 mcg (1,000 unit) tablet 2,000 - 3,000 unit PO QAM Patient Comments: alternating 1000U and 2000U every other day Discharge Orders: Discharge Order (Routine); Ordered 10/16/24 Ordered By: Gurwinder Saleh/Other Patient Handouts: Dizziness Fainting Causes, ED Vertigo, Unspecified Admission Data Admit Date/Time: 10/15/24 14:43 Attending Provider: Gurwinder Zhou Admit Provider: Pascual Melendez Primary Care Provider: Herminio Gomez Other Providers: Pascual Melendez Other Interventions: Discharge Summary Assessment (RN) Last Done: 10/16/24 12:18 Hospital Stay Data Consultations 10/15/24 13:43 ED Decision to Admit Stat Diagnostic Imagining Performed 10/15/24 08:24 CT head/brain wo con Stat CTA head w con [CT angio head w con] Stat CTA neck with con [CT angio neck with con] Stat 10/15/24 15:49 MRI Brain [MR brain wo con] Stat 10/15/24 19:49 US venous doppler LE BI Urgent 10/16/24 09:56 CT angio chest PE protocol Stat Pending Results Patient Have Any Pending Studies at Discharge: No Discharge Instructions Given to Patient (Per Discharging Provider) DISCHARGE INSTRUCTION TO PATIENT/FAMILY: You presented with dizziness. You had an MRI of your brain which did not show any evidence of stroke. It did show some small vessel disease and a small retrocerebellar arachnoid cyst which appears to be an incidental finding. You had bilateral lower extremity Dopplers which did not show any evidence of deep vein thrombosis. He also had a CAT scan of the chest with contrast which did not show any evidence of blood clots in your lungs i.e. pulmonary embolism. I have prescribed you meclizine 12.5 mg 3 times a day as needed for dizziness. If your dizziness recurs please see your PCP for referral to outpatient physical therapy for vestibular physical therapy. Follow-up with your primary care provider within 1 week regarding: Posthospital discharge, medication review, medication refills and follow-up on all your medical problems Please take all your discharge medications, discharge information and discharge instructions to all your doctors appointments. Avoid all NSAIDs including ibuprofen, Motrin, Advil, Aleve, naproxen, meloxicam, Toradol, diclofenac since you have had IV contrast for CAT scan studies 2 days in a row. Please ensure that you are hydrating yourself with at least 2 to 3 L of water every day for the next 48 hours Labs through PCP in 1 to 2 weeks: BMP, MG, VITAMIN D Total Time Total Time Spent Total Time Spent (In Minutes): 40 minutes Coding Level of Care Code 06266 INP/OBS DISCH >30 MIN Diagnoses Hyperglycemia R73.9 Hyperlipidemia E78.5 Dizziness R42 Intracranial arachnoid cyst G93.0
[2024-10-16 15:30] LABS: ANTI-Xa, UFH(UnfractionatedHep < 0.10 IU/ml (0.3-0.7)
[2024-10-16 15:47] VITALS: BP 111/73; PULSE 82; RESP 20; TEMP 98.2; O2SAT 97
== END 2024-10-16 17:43 | disposition home or self-care (01) ==
LOC: 2N 08:11 → ED 08:11 → SUATTDRO 14:43 → 2N 15:47